=== PATIENT | male | born 1985 | race Caucasian/White ===

== ENCOUNTER 2017-04-11 19:19 | Inpatient (IN) | payer MEDICAID ==
[~2017-04-11] VITALS: Ht 172.7 cm; Wt 79.2 kg
[2017-04-11 19:52] LABS: GLUCOSE,POINT OF CARE 178 MG/DL (70-110)
[2017-04-11] MEDS ORDERED: NALOXONE HCL 1 MG/ML 2 ML SYG IVP ONE (20:00)
[2017-04-11] MEDS ORDERED: SODIUM CHLORIDE 0.9% 1,000 ML IV ONE (20:00)
[2017-04-11 20:15] LABS: BASOPHILS # (AUTO) 0.04 K/uL (0.00-0.20); BASOPHILS % (AUTO) 0.3 % (0.0-2.0); EOSINOPHILS # (AUTO) 0.12 K/uL (0.00-0.70); EOSINOPHILS % (AUTO) 0.85 % (1.0-6.0); HEMATOCRIT 43.1 % (41-53); HEMOGLOBIN 14.2 g/dL (13.5-17.5); LYMPHOCYTES # (AUTO) 2.4 K/uL (1.0-4.8); LYMPHOCYTES % (AUTO) 17.8 % (22.0-44.0); MEAN CORPUSCULAR HEMOGLOBIN 30.2 pg (26.0-34.0); MEAN CORPUSCULAR VOLUME 91 fL (80-100); MONOCYTES # (AUTO) 0.5 K/uL (0.1-1.0); MONOCYTES % (AUTO) 3.4 % (2.0-9.0); NEUTROPHILS # (AUTO) 10.7 K/uL (1.8-7.7); NEUTROPHILS % (AUTO) 77.7 % (40.0-70.0); PLATELET COUNT (AUTO) 199 K/uL (150-450); RED BLOOD CELL COUNT(AUTO) 4.72 MIL/uL (4.50-5.90); RED CELL DISTRIBUTION WIDTH 13.8 % (11.5-14.5); WHITE BLOOD COUNT (AUTO) 13.7 K/uL (4.5-11.0)
[2017-04-11 20:36] LABS: ANION GAP 12 mmol/L (8-16); CALCIUM, TOTAL 7.9 mg/dL (8.8-10.5); CARBON DIOXIDE 26 mmol/L (22-29); CHLORIDE 102 mmol/L (98-107); CREATININE 0.98 mg/dL (0.60-1.30); GLOMERULAR FILTR. RATE CALC > 60 mL/min (>60); POTASSIUM 3.6 mmol/L (3.5-5.1); SODIUM SERUM 140 mmol/L (136-145); UREA NITROGEN, BLOOD 16 mg/dL (7-18)
[2017-04-11 20:42] LABS: ALANINE AMINOTRANSFERASE 41 U/L (12-78); ALBUMIN 3.7 g/dL (3.4-5.0); ASPARTATE AMINOTRANSFERASE 37 U/L (15-37); BILIRUBIN,TOTAL 0.2 mg/dL (0.1-1.0); TOTAL PROTEIN, SERUM 7.3 g/dL (6.4-8.2)
[2017-04-11 20:48] LABS: APPEARANCE,URINE CLEAR (CLEAR); GLUCOSE, URINE (UA) 250 mg/dL (NEGATIVE); KETONES,URINE NEGATIVE (NEGATIVE); LEUKOCYTE ESTERASE ,URINE NEGATIVE (NEGATIVE); OCCULT BLOOD,URINE NEGATIVE (NEGATIVE); PH,URINE 6.5 (5.0-8.0); PROTEIN,URINE TRACE (NEGATIVE)
[2017-04-11 20:54] LABS: RBC,URINE None Seen /HPF (0-2); WBC,URINE 0-2 /HPF (0-5)
[2017-04-11] MEDS ORDERED: ONDANSETRON HCL 4 MG/2 ML VIAL IVP PRN ×2 (22:30→23:00)
[2017-04-11] MEDS ORDERED: 0.9% SODIUM CHLORIDE 10 ML SYRINGE IVP PRN (22:30)
[2017-04-11] MEDS ORDERED: LACTULOSE 20 GM/30 ML SOLUTION UDCUP PO ONE (22:30)
[2017-04-11] MEDS ORDERED: ACETAMINOPHEN 325 MG TABLET PO PRN (22:30)
[2017-04-11] MEDS ORDERED: ZOLPIDEM TARTRATE 5 MG TABLET PO PRN (23:00)
[2017-04-11] MEDS ORDERED: MAGNESIUM SULFATE 4 GM/WATER 100 ML IV PRN (23:00)
[2017-04-11] MEDS ORDERED: INSULIN ASPART 100 UNITS/ML SQ PRN (23:00)
[2017-04-11] MEDS ORDERED: MAGNESIUM HYDROXIDE SUSPENSION 30 ML UDCUP PO PRN (23:00)
[2017-04-11] MEDS ORDERED: BISACODYL 10 MG RECTAL RECTAL SUPPOSITORY PR PRN (23:00)
[2017-04-11] MEDS ORDERED: POTASSIUM CHL 10 MEQ/WATER 50 ML IV PRN (23:00)
[2017-04-11] MEDS ORDERED: MAGNESIUM SULFATE 2 GM in DEXTROSE 5%-WATER 50 ML IV PRN (23:00)
[2017-04-11] MEDS ORDERED: DEXTROSE 50%-WATER 25 GM/50 ML SYRINGE IVP PRN (23:00)
[2017-04-11] MEDS ORDERED: IPRATROPIUM BROMIDE 0.5 MG/2.5 ML NEB SOLUTION NEB PRN (23:00)
[2017-04-11] MEDS ORDERED: ALBUTEROL SULFATE 2.5 MG/0.5 ML NEB SOLUTION NEB PRN (23:00)
[2017-04-11] MEDS ORDERED: MAGNESIUM OXIDE 400 MG TABLET PO PRN (23:00)
[2017-04-11] MEDS ORDERED: POTASSIUM CHLORIDE 20 MEQ ER TABLET PO PRN ×2 (23:00)
[2017-04-11 23:05] VITALS: BP 113/72
[2017-04-12] MEDS: SODIUM CHLORIDE 0.9% 1,000 ML IV SCH ×2 (00:56→08:51)
[2017-04-12 04:30] VITALS: BP 100/56
[2017-04-12 05:08] LABS: BASOPHILS # (AUTO) 0.02 K/uL (0.00-0.20); BASOPHILS % (AUTO) 0.2 % (0.0-2.0); EOSINOPHILS % (AUTO) 0.02 % (1.0-6.0); HEMATOCRIT 41.6 % (41-53); HEMOGLOBIN 13.7 g/dL (13.5-17.5); LYMPHOCYTES # (AUTO) 1.3 K/uL (1.0-4.8); LYMPHOCYTES % (AUTO) 14.5 % (22.0-44.0); MEAN CORPUSCULAR HEMOGLOBIN 30.2 pg (26.0-34.0); MEAN CORPUSCULAR HGB CONC 32.9 G/dL (31.0-37.0); MEAN CORPUSCULAR VOLUME 92 fL (80-100); MONOCYTES # (AUTO) 0.5 K/uL (0.1-1.0); MONOCYTES % (AUTO) 5.2 % (2.0-9.0); NEUTROPHILS # (AUTO) 7.3 K/uL (1.8-7.7); NEUTROPHILS % (AUTO) 80.1 % (40.0-70.0); PLATELET COUNT (AUTO) 178 K/uL (150-450); RED BLOOD CELL COUNT(AUTO) 4.53 MIL/uL (4.50-5.90); RED CELL DISTRIBUTION WIDTH 14.2 % (11.5-14.5); WHITE BLOOD COUNT (AUTO) 9.1 K/uL (4.5-11.0)
[2017-04-12 05:16] LABS: HEMOGLOBIN A1C 5.3 % (4.5-6.2)
[2017-04-12 05:28] LABS: GLUCOSE,POINT OF CARE 116 MG/DL (70-110)
[2017-04-12 05:53] LABS: ALANINE AMINOTRANSFERASE 35 U/L (12-78); ALBUMIN 3.5 g/dL (3.4-5.0); ANION GAP 6 mmol/L (8-16); ASPARTATE AMINOTRANSFERASE 22 U/L (15-37); BILIRUBIN,TOTAL 0.3 mg/dL (0.1-1.0); CALCIUM, TOTAL 7.9 mg/dL (8.8-10.5); CARBON DIOXIDE 30 mmol/L (22-29); CHLORIDE 104 mmol/L (98-107); CHOL/HDL RATIO 3.2 (4.2-7.3); CREATININE 0.75 mg/dL (0.60-1.30); GLOMERULAR FILTR. RATE CALC > 60 mL/min (>60); PHOSPHORUS 4.8 mg/dL (2.5-4.9); POTASSIUM 4.2 mmol/L (3.5-5.1); SODIUM SERUM 140 mmol/L (136-145); THYROID STIMULATING HORMONE 0.33 uIU/mL (0.36-3.74); TOTAL PROTEIN, SERUM 6.9 g/dL (6.4-8.2); UREA NITROGEN, BLOOD 14 mg/dL (7-18)
[2017-04-12 07:04] VITALS: BP 96/45
[2017-04-12] MEDS: LACTULOSE 20 GM/30 ML SOLUTION UDCUP PO SCH ×3 (10:58→20:22)
[2017-04-12] MEDS: PANTOPRAZOLE SODIUM 40 MG DR TABLET PO SCH (10:58)
[2017-04-12] MEDS: HEPARIN SODIUM,PORCINE 5,000 UNITS/ML VIAL SQ SCH ×2 (10:58→20:22)
[2017-04-12 11:48] VITALS: BP 113/63
[2017-04-12 12:23] LABS: GLUCOSE,POINT OF CARE 131 MG/DL (70-110)
[2017-04-12 16:01] VITALS: BP 133/89
[2017-04-12 20:17] VITALS: BP 120/70
[2017-04-12 21:12] LABS: GLUCOSE,POINT OF CARE 95 MG/DL (70-110)
[2017-04-12 22:32] LABS: GLUCOSE COMMENT 1 Received Meds; GLUCOSE,POINT OF CARE 120 MG/DL (70-110)
[2017-04-12 23:30] VITALS: BP 108/61
[2017-04-13 03:30] VITALS: BP 112/64
[2017-04-13 06:23] LABS: GLUCOSE COMMENT 1 Received Meds; GLUCOSE COMMENT 2 Juice/Food/D50 Given; GLUCOSE,POINT OF CARE 87 MG/DL (70-110)
[2017-04-13 07:51] VITALS: BP 91/47
[2017-04-13] MEDS: HEPARIN SODIUM,PORCINE 5,000 UNITS/ML VIAL SQ SCH (07:59)
[2017-04-13] MEDS: PANTOPRAZOLE SODIUM 40 MG DR TABLET PO SCH (07:59)
[2017-04-13] MEDS: LACTULOSE 20 GM/30 ML SOLUTION UDCUP PO SCH (07:59)
[2017-04-13 12:50] VITALS: BP 109/60
== END 2017-04-13 14:10 | disposition home or self-care (01) | DRG 279 ==
LOC: EMS 19:21 → 6N 22:30 → EDBD 22:30
PROVIDERS: ADMIT Internal Medicine; ATTEND Internal Medicine
DX: K72.90 Hepatic failure, unspecified without coma (principal); E83.51 Hypocalcemia; R73.9 Hyperglycemia, unspecified; F10.10 Alcohol abuse, uncomplicated; F17.210 Nicotine dependence, cigarettes, uncomplicated; Y90.0 Blood alcohol level of less than 20 mg/100 ml; Z59.0 Homelessness
CPT/HCPCS: 70450; 82306; 82948; 82962; 83036; 83735; 84100; 84443; 93005; 96361; 96374; 99285; G0480; J1644; J2310; J7030